=== PATIENT | female | born 2000 | race Caucasian/White ===

== ENCOUNTER 2019-02-19 11:28 | Emergency (ER) | payer MEDICAID ==
[~2019-02-19] VITALS: Ht 160 cm; Wt 55.0 kg
[~2019-02-19 11:28] MED LIST: ONDA4TAB59 PO
[2019-02-19] MEDS ORDERED: LORazepam 2 mg/ml vial IV ONE (12:00)
[2019-02-19] MEDS ORDERED: ondansetron/PF 4mg/2ml inj IV ONE (12:00)
[2019-02-19] MEDS ORDERED: normal saline 1000ML IV soln IVB ONE (12:00)
[2019-02-19] MEDS ORDERED: acetaminophen 325mg tablet PO ONE (12:00)
[2019-02-19] MEDS ORDERED: ONDA4TAB6 PO (12:06)
[2019-02-19 14:27] VITALS: BP 113/65
== END 2019-02-19 14:28 | disposition home or self-care (01) ==
LOC: ER 11:29
DX: O26.892 Other specified pregnancy related conditions, second trimester (principal); G43.909 Migraine, unspecified, not intractable, without status migrainosus; O99.322 Drug use complicating pregnancy, second trimester; F12.90 Cannabis use, unspecified, uncomplicated; Z79.899 Other long term (current) drug therapy; Z3A.17 17 weeks gestation of pregnancy
CPT/HCPCS: 96374; 96375; 99283; J2060; J2405; J7030